=== PATIENT | female | born 1970 | race Caucasian/White ===

== ENCOUNTER 2017-11-20 18:24 | Emergency (ER) | payer OTHER ==
--- NOTE | 2017-11-20 18:45 | PDOC ---
History of Present Illness - General Chief Complaint: Back Pain Stated Complaint: BACK PAIN Time Seen by Provider: 11/20/17 18:39 History Source: Patient Exam Limitations: No Limitations - History of Present Illness Initial Comments: 11/20/17 18:40 47 y/o female with lower back pain, radiating to right leg. Denies recent procedure as well. trauma or fall. No fever or chill. No weakness. Had similar episode last month. No incontinence. Started 2 days ago and comes on with her menstrual cycle. No dysuria, abdominal pain, weakness or incontinence. Worse with movement. Patient took Ibuprofen yesterday but nothing for pain today. Severity: reports: moderate Pain Location: reports: back Method of Injury: No: direct blow, fall Past History - Past Medical History Allergies/Adverse Reactions: Allergies Allergy/AdvReac Type Severity Reaction Status Date / Time sulfamethoxazole Allergy Verified 11/20/17 18:27 [From Bactrim] trimethoprim [From Bactrim] Allergy Verified 11/20/17 18:27 Home Medications: Ambulatory Orders Cyclobenzaprine HCl 10 mg PO DAILY #5 tablet 11/20/17 Methylprednisolone [Medrol Dose Darshan] 4 mg PO ASDIR #21 tablet 11/20/17 Naproxen Sodium [Aleve] 220 mg PO ASDIR 11/20/17 COPD: No Other medical history: denies - Suicide/Smoking/Psychosocial Hx Smoking History: Never smoked Have you smoked in the past 12 months: No Information on smoking cessation initiated: No Hx Alcohol Use: No Review of Systems - Review of Systems Able to Perform ROS?: Yes Is the patient limited Swedish proficient: No Constitutional: No: Chills, Fever HEENTM: No: Throat Pain Respiratory: No: Shortness of Breath Cardiac (ROS): No: Chest Pain ABD/GI: No: Nausea, Vomiting Musculoskeletal: Yes: Back Pain Integumentary: No: Erythema All Other Systems: Reviewed and Negative *Physical Exam - Vital Signs Last Vital Signs Temp Pulse Resp BP Pulse Ox 97.6 F 87 18 132/76 100 11/20/17 18:25 11/20/17 18:25 11/20/17 18:25 11/20/17 18:25 11/20/17 18:25 - Physical Exam General Appearance: Yes: Nourished, Appropriately Dressed. No: Apparent Distress HEENT: positive: EOMI, LAURA, Normal ENT Inspection, Normal Voice, Pharynx Normal Neck: positive: Trachea midline, Normal Thyroid, Supple. negative: Tender, Rigid Respiratory/Chest: positive: Lungs Clear, Normal Breath Sounds. negative: Chest Tender, Respiratory Distress Cardiovascular: positive: Regular Rhythm, Regular Rate, S1, S2. negative: Edema , JVD, Murmur Vascular Pulses: Femoral (R): 4+, Femoral (L): 4+, Carotid (R): 4+, Carotid (L) : 4+, Dorsalis-Pedis (R): 4+, Doralis-Pedis (L): 4+ Gastrointestinal/Abdominal: positive: Normal Bowel Sounds, Flat, Soft. negative : Tender, Organomegaly, Pulsatile Mass Lymphatic: negative: Adenopathy, Tenderness, Other Musculoskeletal: positive: Normal Inspection, Other (tenderness to right SI joint on palpation, no spinous process tenderness, full ROM, neg SLR test b/l, strength 5+/5 b/l in UE adn LE, no focal deficits noted). negative: CVA Tenderness, Decreased Range of Motion, Vertebral Tenderness Extremity: positive: Normal Capillary Refill, Normal Inspection, Normal Range of Motion. negative: Tender Integumentary: positive: Normal Color, Dry, Warm Neurologic: positive: brazer helper induction II-XII NML intact, Fully Oriented, Alert, Normal Mood/ Affect, Normal Response, Motor Strength 5/5 Progress Note - Progress Note Progress Note: Discussed with pt, will place on Medrol dose pack adn Lfexeril with Ibuprofen If pain persists will need further imaging studies. Patient is in agreement with plan *DC/Admit/Observation/Transfer Diagnosis at time of Disposition: Sacroiliitis Acute back pain with sciatica Qualifiers: Laterality: right Qualified Code(s): M54.41 - Lumbago with sciatica, right side - Discharge Dispostion Disposition: HOME Condition at time of disposition: Stable Decision to Admit order: No - Referrals Referrals: Latricia Cintron MD [Primary Care Provider] - - Patient Instructions Printed Discharge Instructions: DI for Sciatica, DI for Back Pain With Sciatica Additional Instructions: Ice, Motrin, rest Flexeril 10 mg at night time as needed Medrol dose pack as directed If worsen return to ER - Post Discharge Activity
[2017-11-20 20:09] VITALS: BP 132/76; PULSE 87; TEMP 97.6; BMI 24.9
== END 2017-11-20 19:07 | disposition home or self-care (01) ==
LOC: FER 18:24
DX: M46.1 Sacroiliitis, not elsewhere classified (principal); M54.41 Lumbago with sciatica, right side
CPT/HCPCS: 99283-25